=== PATIENT | female | born 1995 | race Hispanic/Latino ===

== ENCOUNTER 2018-08-04 19:01 | Emergency (ER) | payer OTHER ==
[2018-08-04] MEDS ORDERED: ACETAMINOPHEN EXTRA STRENGTH 500 MG TABLET ONE (19:16)
[2018-08-04 20:16] LABS: BILIRUBIN,URINE Negative (NEGATIVE); COLOR,URINE Yellow (YELLOW); GLUCOSE, URINE (UA) Negative (NEGATIVE); KETONES,URINE Negative (NEGATIVE); LEUKOCYTE ESTERASE ,URINE Small (NEGATIVE); NITRATE,URINE Negative (NEGATIVE); OCCULT BLOOD,URINE Negative (NEGATIVE); PH,URINE 8.5 (5.0-8.0); PROTEIN,URINE Negative (NEGATIVE); UROBILINOGEN,URINE >=8.0 mg/dL (0.2-1.0)
[2018-08-04 20:17] LABS: HCG,QUAL RESULT NEGATIVE (NEGATIVE)
[2018-08-04 20:19] LABS: APPEARANCE,URINE CLOUDY (CLEAR)
[2018-08-04 20:42] LABS: BACTERIA,URINE Moderate /HPF (None Seen); RBC,URINE None Seen /HPF (0-1)
[2018-08-04] MEDS ORDERED: LIDOCAINE HCL-MPF 1% 2ML VIAL ONE (21:28)
[2018-08-04] MEDS ORDERED: CEFTRIAXONE SODIUM 1 GM ONE (21:28)
[2018-08-04] MEDS ORDERED: PHENAZOPYRIDINE HCL 200 MG TABLET ONE (21:29)
== END 2018-08-04 22:01 | disposition home or self-care (01) ==
LOC: EDH 19:01
DX: N30.00 Acute cystitis without hematuria (principal)
CPT/HCPCS: 81001; 81025; 87804 ×2; 96372; 99284; J0696; J3490